=== PATIENT | female | born 1995 | race Caucasian/White ===

== ENCOUNTER 2020-04-21 15:38 | Emergency (ER) | payer MEDICAID ==
[2020-04-21] MEDS ORDERED: Lidocaine 2% Viscous Solution 15 ML Cup PO ONE (16:11)
--- NOTE | 2020-04-21 16:12 | EDM.PDOC ---
ED HPI GENERAL MEDICAL PROBLEM - General Chief Complaint: ENT Problem Stated Complaint: TOOTH ACHE Time Seen by Provider: 04/21/20 15:55 Source of Information: Reports: Patient History Limitations: Reports: No Limitations - History of Present Illness INITIAL COMMENTS - FREE TEXT/NARRATIVE: has cavities , has gotten worse in the last 2 weeks in the last one week developed pain in the upper right teeth area with swelling of the gums no fever or chill no sore throat , no cough states she is waiting to see dentist as she has no insurance Onset: Gradual Onset Date: 04/14/20 Duration: Week(s):, Getting Worse Location: Reports: Other (upper right teeth) Quality: Reports: Ache, Throbbing Severity: Moderate Improves with: Reports: None Worsens with: Reports: Eating Associated Symptoms: Reports: No Other Symptoms Other Treatments 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 #3 2 weeks ago right upper tooth Pain Score (Numeric/FACES): 10 - Related Data Allergies Allergy/AdvReac Type Severity Reaction Status Date / Time Penicillins Allergy Difficulty Verified 04/21/20 15:53 Breathing vancomycin Allergy Hives Verified 04/21/20 15:53 Home Meds: Home Meds Chlorhexidine Gluconate 0.12% [Peridex 0.12% Rinse] 15 ml MM TID #480 ml 04/21/20 [Rx] Ciprofloxacin HCl [Cipro] 500 mg PO BID #20 tablet 04/21/20 [Rx] Ketorolac [Toradol] 10 mg PO Q6H PRN #15 tab 04/21/20 [Rx] Past Medical History Gastrointestinal History: Reports: Irritable Bowel Syndrome 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 Denies: Ear Pain, Eye Pain, Nose Pain, Throat Pain, Throat Swelling Respiratory: Denies: Shortness of Breath, Cough Cardiovascular: Denies: Chest Pain Endocrine: Denies: Fatigue GI/Abdominal: Denies: Abdominal Pain Musculoskeletal: Denies: Neck Pain, Joint Pain, Joint Swelling Skin: Reports: No Symptoms Neurological: Reports: No Symptoms Psychiatric: Reports: No Symptoms Hematologic/Lymphatic: Reports: No Symptoms Immunologic: Reports: No Symptoms ED EXAM, ENT - Physical Exam Exam: See Below Exam Limited By: No Limitations General Appearance: Alert, WD/WN, No Apparent Distress Eye Exam: Bilateral Eye: EOMI Ears: Normal TMs Nose: Normal Inspection Mouth/Throat: Normal Oropharynx, Dental Pain (right upper molar), Dental Tenderness, Gum Swelling. No: Dental Abcess, Oral Ulcers, Peritonsillar Mass, Pharyngeal Erythema Head: Atraumatic, Normocephalic Neck: Supple, Non-Tender Respiratory/Chest: Lungs Clear, Normal Breath Sounds Cardiovascular: Regular Rate, Rhythm Back: Full Range of Motion Extremities: Normal Inspection, Non-Tender Neurological: Alert, Oriented, CN II-XII Intact, Normal Cognition Psychiatric: Normal Affect, Normal Mood Skin: Warm, Dry Course - Vital Signs Last Recorded V/S: Last Vital Signs Temp 37.0 C 04/21/20 15:50 Pulse 77 04/21/20 15:50 Resp 15 04/21/20 15:50 BP 108/63 04/21/20 15:50 Pulse Ox 100 04/21/20 15:50 Departure - Departure Time of Disposition: 16:25 Disposition: Home, Self-Care 01 Condition: Good Clinical Impression: Active dental caries, Infected dental caries, Gingivitis due to dental plaque with local contributing factor - Discharge Information *PRESCRIPTION DRUG MONITORING PROGRAM REVIEWED*: Not Applicable *COPY OF PRESCRIPTION DRUG MONITORING REPORT IN PATIENT MORGAN: Not Applicable Instructions: Dental Abscess, [id number] Sepsis Event Note (ED) - Evaluation Sepsis Screening Result: No Definite Risk - Focused Exam Vital Signs: Vital Signs Temp Pulse Resp BP Pulse Ox 04/21/20 15:50 37.0 C 77 15 108/63 100
== END 2020-04-21 16:30 | disposition home or self-care (01) ==
LOC: FB.ED 15:38
DX: K02.9 Dental caries, unspecified (principal); K05.10 Chronic gingivitis, plaque induced; Z88.0 Allergy status to penicillin; Z88.1 Allergy status to other antibiotic agents; Z79.899 Other long term (current) drug therapy
CPT/HCPCS: 99282; 99283; A9270-GY